=== PATIENT | male | born 1965 | race Caucasian/White ===

== ENCOUNTER → 2020-01-28 17:38 | Outpatient (CLI) | payer OTHER, SELFPAY ==
--- NOTE | 2020-01-28 17:59 | MRI_ITS ---
HISTORY: RIGHT optic neuritis X 5 DAYS; PT REFUSED CONTRAST PORTION OF EXAM EXAMINATION: MR Brain W/O Contrast TECHNIQUE: Multiplanar and multisequence MR images of the brain were obtained without gadolinium. IV Contrast dosage and agent: None. COMPARISON: None FINDINGS: Normal ventricles. On FLAIR imaging, solitary white matter hyperintensity at the posterior right frontal lobe. No typical MR findings of MS plaque disease. Diffusion-weighted images are negative. The right and left orbits are symmetrical. By MRI, the optic nerves are symmetrical and show normal signal. With gradient echo imaging, no MR findings of vasculitis or cerebral microhemorrhage. Normal flow voids within the major vessels. The dural venous sinuses are unremarkable. No intracranial mass, hemorrhage, or acute, abnormality identified. Posterior fossa and midline structures showed no signal abnormality. The cerebellopontine angle regions are unremarkable. MRI/Brain without Contrast IMPRESSION: 1. MR exam is essentially negative. Currently, symmetrical orbits and optic nerves without signal abnormality. 2. No intracranial hemorrhage or acute intracranial disease identified. 3. Solitary right cerebral white matter hyperintensity and these foci may be seen with normal aging, hypertension, and small vessel chronic disease. No typical findings of MS plaque disease. at 3093 Reported and signed by: Shiol Winston MD Electronically Signed: Shilo Winston, at 6:25 EDT Tel , Service support ,
== END ==
PROVIDERS: PCP Family Medicine; Referring Provider Ophthalmology; Visit Provider Ophthalmology
DX: H46.9 Unspecified optic neuritis (principal)
CPT/HCPCS: 70551

== ENCOUNTER → 2022-05-20 | Outpatient (CLI) | payer OTHER, SELFPAY ==
[2022-05-20 11:21] LABS: EXAGEN MAILED SPECIMEN
[2022-05-20 12:10] LABS: Absolute Lymphocyte Count 1.48 X10^3/uL (0.83-4.51); Absolute Neutrophil Count 3.6 X10^3/uL (2.0-7.7); Basophil# 0.04 X10^3/uL; Basophil% 0.7 % (0-1); Eosinophil# 0.25 X10^3/uL; Eosinophils% 4.2 % (0-5); Hematocrit 42.3 % (40-54); Hemoglobin 14.4 g/dL (13.0-16.5); Lymphocyte # 1.48 X10^3/ul (0.83-4.51); Mean Corpuscular Hgb 31.5 pg (27.0-32.0); Mean Corpuscular Volume 92.6 fL (80-94); Mean Platelet Vol. 10.1 fl (6.2-12.0); Monocyte# 0.51 X10^3/uL; Monocyte% 8.6 % (0-10); NRBC Flagged by Analyzer 0 % (0-5); Neutrophil # 3.61 X10^3/uL (2.7-7.7); Neutrophil % 61.2 % (47-70); Platelet Count 258 K/mm3 (150-450); RBC Distribution Width CV 13.4 % (11.6-14.6); RBC Distribution Width SD 45.9 fl (35.1-43.9); Red Blood Count 4.57 M/mm3 (4.6-6.2); White Blood Count 5.9 K/mm3 (4.4-11.0)
[2022-05-20 12:13] LABS: Erythrocyte Sedimentation Rate 18 mm/hr (0-20)
[2022-05-20 12:28] LABS: International Normalized Ratio 1.1; Prothrombin Time (Protime)PT. 13.7 SECONDS (11.7-14.9)
[2022-05-20 13:04] LABS: ALB/GLOB Ratio 0.9 RATIO (0.9-2.4); AST(SGOT) 25 U/L (15-37); Alanine Aminotransfer ALT/SGPT 51 U/L (16-61); Albumin, Serum 3.8 g/dL (3.2-5.0); Alkaline Phosphatase 84 U/L (45-117); Anion Gap 8 (5-15); BUN 21 mg/dL (7-18); BUN/Creat Ratio 15.4 RATIO (10-20); CRP < 2.90 mg/L (0.0-3.0); Calcium,Total 8.9 mg/dL (8.5-10.1); Chloride 106 mmol/L (98-107); Creatinine, Serum 1.36 mg/dL (0.70-1.30); EST Glomerular Filtration Rate 57 mL/min (>60); Est Glom Filt Rate - Afr Amer 69 mL/min (>60); Globulin 4.1 g/dL (2.2-4.2); Glucose 90 mg/dL (74-106); Protein, Total 7.9 g/dL (6.4-8.2); Sodium Level 139 mmol/L (136-145)
[2022-05-20 15:03] LABS: Glucose, Dipstick Normal (Normal); Ketone-Dipstick Negative (Negative); Leukocyte Esterase-Dipstick Negative /ul (Negative); Nitrite-Dipstick Negative (Negative); Occult Blood-Urine Negative /ul (Negative); Protein-Dipstick Negative (Negative); Urine Bilirubin Dipstick Negative (Negative); Urine Urobilinogen Normal (Normal)
[2022-05-20 15:06] LABS: Color, Urine Yellow (Yellow); Urine Clarity Clear (Clear)
[2022-05-20 15:24] LABS: Protein, Urine (Random) 14.5 mg/dL (<11.9); Protein:Creat Ratio 89 mg/g CRE (0-200)
[2022-05-24 11:07] LABS: Hexagonal Phase Phospholipid 7 sec (0-11)
== END | disposition home or self-care (01) ==
LOC: MTLAB 10:19
PROVIDERS: PCP Family Medicine; Referring Provider Internal Medicine Rheumatology; Visit Provider Internal Medicine Rheumatology
DX: H43.89 Other disorders of vitreous body (principal); R76.8 Other specified abnormal immunological findings in serum; I10 Essential (primary) hypertension; E78.5 Hyperlipidemia, unspecified; G47.33 Obstructive sleep apnea (adult) (pediatric); M79.89 Other specified soft tissue disorders; M21.41 Flat foot [pes planus] (acquired), right foot
CPT/HCPCS: 36415; 80053; 81002; 82570; 84156; 85025; 85598; 85610; 85652; 85730; 86140